=== PATIENT | male | born 1945 | race Caucasian/White ===

== ENCOUNTER 2017-11-28 11:35 | Emergency (ER) | payer OTHER ==
[~2017-11-28] VITALS: Ht 172.7 cm; Wt 120.7 kg
[~2017-11-28 11:35] MED LIST: ADVAIR 250/501 DISK IH; ATROVENT 0.06%15 ML BOTH NARES; AZITHROMYCIN250 MG PO; BENZONATATE200 MG PO; HYDROCODONE-CH473 ML PO; LEVOCETIRIZINE D5 MG PO; MONTELUKAST SOD10 MG PO; MUCINEX D ER T1 EACH PO; PERCOCET 5/31 TABLET PO; PREDNISONE20 MG PO; RANITIDINE HCL150 MG PO; VENTOLIN HFA18 GM IH
[2017-11-28 16:33] VITALS: BP 138/81
== END 2017-11-28 16:34 | disposition home or self-care (01) ==
LOC: EME 11:35
PROC: 0HQGXZZ Repair Left Hand Skin, External Approach (ICD-10-PCS; principal; 2017-11-28)
DX: S61.211A Laceration without foreign body of left index finger without damage to nail, initial encounter (principal); W27.8XXA Contact with other nonpowered hand tool, initial encounter; Y93.H2 Activity, gardening and landscaping; Z88.0 Allergy status to penicillin
CPT/HCPCS: 99281; 99284; S0020